=== PATIENT | female | born 1955 | race Caucasian/White ===

== ENCOUNTER 2018-11-22 05:24 | Day surgery (SDC) | payer OTHER ==
[2018-11-22] VITALS (16 sets, daily range): BP systolic 120–166; BP diastolic 55–80
[~2018-11-22] VITALS: Ht 154.9 cm; Wt 54.0 kg
[~2018-11-22 05:24] MED LIST: BIOTIN2500 MCG PO; Dexamethasone 20mg/5ml IVP ONE; SYNTHROID150 MCG ORAL; TURMERIC 450-51 EAC1 PO; VITAMIN A PO; VITAMIN B122500 MCG PO; VITAMIN E400 UNI5 PO; Vancomycin 1 GM in D5W 275 ML IVPB ONE; [UNRECOGNIZED DRUG - OTHER] PO
[2018-11-22] MEDS ORDERED: Morphine Sulfate 4mg/ml Inj (IV USE ONLY) IM PRN (05:45)
[2018-11-22] MEDS ORDERED: HYDROcodone/Acetamin 10/325 tab ORAL PRN (05:45)
[2018-11-22] MEDS ORDERED: Chloraseptic Spray 20mL Bottle ORAL PRN (05:45)
--- NOTE | 2018-11-22 06:18 | Anethesia Preoperative Eval ---
Anesthesia Pre-op PMH/ROS General Date of Evaluation: November 22, 2018 Time of Evaluation: 07:06 Anesthesiologist: Eliane ASA Score: ASA 2 Mallampati Score Class I : Soft palate, uvula, fauces, pillars visible Class II: Soft palate, uvula, fauces visible Class III: Soft palate, base of uvula visible Class IV: Only hard plate visible Mallampati Classification: Class II Surgeon: Aleksandr Diagnosis: Neck Pain Surgical Procedure: ACDF C6-7 Anesthesia History: none Family History: no anesthesia problems Allergies: Coded Allergies: PENICILLINS (Verified Allergy, Severe, 11/16/18) ANAPHYLACTIC SHOCK Medications: see eMAR Patient NPO?: Yes NPO Date: November 21, 2018 NPO Time: 2358 Past Medical History Cardiovascular: Reports: HTN Endocrine: Reports: hypothyroidism PSxH Narrative: T&A, DAVID, Cholecystectomy Anesthesia Pre-op Phys. Exam Physician Exam Last Vital Signs Date Time Temp Pulse Resp B/P (MAP) Pulse Ox O2 Delivery O2 Flow Rate FiO2 11/22/18 06:09 97.5 71 18 147/75 (99) 98 Constitutional: NAD Neurologic: CN 2-12 intact Cardiovascular: RRR Respiratory: CTA Gastrointestinal: S/NT/ND Airway Exam Mallampati Score: Class II MO: full ROM: limited Teeth: missing, intact Anesthesia Pre-op A/P Risk Assessment & Plan Assessment: ASA 2 Plan: GA, SED, GlideScope Go Status Change Before Surgery: No Pre-Antibiotics Dru Grams Ancef IV Given Within 1 Hr of Incision: Yes Time Given: 07:36 Jass Del Rio MD November 22, 2018 06:18
[2018-11-22] MEDS ORDERED: Zemuron 50mg/5ml Inj IV ONE (06:20)
[2018-11-22] MEDS ORDERED: Thrombin 5000 units TOPIC ONE (06:28)
[2018-11-22] MEDS ORDERED: Gelfoam Size TOPIC ONE (06:28)
[2018-11-22] MEDS ORDERED: Bacitracin 50000 Units Vial ONE (06:29)
[2018-11-22] MEDS ORDERED: Lidocaine 1% MPF 10mg/ml 5ml ONE (06:48)
[2018-11-22] MEDS ORDERED: Sodium Chloride 10ml vial INJ ONE (06:48)
[2018-11-22] MEDS ORDERED: Dexamethasone 4mg/ml vial ONE (06:48)
[2018-11-22] MEDS ORDERED: fentaNYL 100 mcg/2 mL IV ONE ×2 (06:49→08:25)
[2018-11-22] MEDS ORDERED: Dexamethasone 20mg/5ml IVP ONE (07:00)
[2018-11-22] MEDS ORDERED: Sterile Water Irrig 1000ml IRRIG ONE (07:00)
[2018-11-22] MEDS ORDERED: Vancomycin 1 GM in D5W 275 ML IVPB ONE (07:00)
[2018-11-22] MEDS ORDERED: LR 1000ml ONE (07:00)
[2018-11-22] MEDS ORDERED: Propofol 1,000mg/ 100ml btl IV ONE (07:00)
[2018-11-22] MEDS ORDERED: NS Irrig 1000ml ONE (07:00)
[2018-11-22] MEDS ORDERED: Labetalol 5mg/ml 20ml vial IV ONE (07:00)
--- NOTE | 2018-11-22 07:09 | Pre-Procedure Note/Attestation ---
Pre-Procedure Note/Attestation Complete Prior to Procedure Planned Procedure: not applicable Procedure Narrative: C6-C7 ACDF anterior plate Indications for Procedure Pre-Operative Diagnosis: Trauma Cervical HNP radiculopathy, neurological deficit Attestation I attest that I discussed the nature of the procedure; its benefits; risks and complications; and alternatives (and the risks and benefits of such alternatives ), prior to the procedure, with the patient (or the patient's legal employment program representative). I attest that, if there was a reasonable possibility of needing a blood transfusion, the patient (or the patient's legal employment program representative) was given the [place] [employer] standardized written summary, pursuant to the Horacio Emison Blood Safety Act ([place] Health and Safety Code # 1645, as amended). I attest that I re-evaluated the patient just prior to the surgery and that there has been no change in the patient's H&P, except as documented below: Hubert Brandon MD November 22, 2018 07:09
--- NOTE | 2018-11-22 07:11 | Immediate Post-Op Evaluation ---
Immediate Post-Op Evalulation Immediate Post-Op Evalulation Procedure: ACDF C6-7 Date of Evaluation: November 22, 2018 Time of Evaluation: 10:18 IV Fluids: 1000 LR Blood Products: 0 Estimated Blood Loss: 25 Urinary Output: 0 Blood Pressure Systolic: 159 Blood Pressure Diastolic: 76 Pulse Rate: 57 Respiratory Rate: 16 O2 Sat by Pulse Oximetry: 99 Temperature (Fahrenheit): 97.2 Pain Score (1-10): 2 Nausea: No Vomiting: No Complications 0 Patient Status: awake, reacts, patent, extubated, none Hydration Status: adequate Dru Grams Ancef IV Given Within 1 Hr of Incision: Yes Time Given: 07:36 Jass Del Rio MD November 22, 2018 07:11
[2018-11-22] MEDS ORDERED: Lidocaine 1% Plain 30 ml INJ ONE (08:51)
[2018-11-22] MEDS ORDERED: Neostigmine 1mg/ml 10ml Inj ONE (09:12)
[2018-11-22] MEDS ORDERED: Glycopyrrolate 0.2mg/ml 1ml Vial ONE (09:12)
--- NOTE | 2018-11-22 09:38 | Brief Operative Note ---
Immediate Post Operative Note Operative Note Pre-op Diagnosis: Trauma Cervical HNP radiculopathy, neurological deficit Procedure: ACDF C6-C7 Magnification SSEP Anterior Plate Post-op Diagnosis: same as pre-op Findings: consistent w/pre-op dx studies Surgeon: Aleksandr VASQUEZ Tax Lawyer: Paula FREEMAN Anesthesiologist: Eliane VASQUEZ Anesthesia: general Specimen: yes Complications: none Condition: stable Fluids: anesthesia Estimated Blood Loss: minimal Drains: none Implant(s) used?: Yes Hubert Brandon MD November 22, 2018 09:38
[2018-11-22] MEDS ORDERED: Naloxone 0.4mg/ml Inj IVP PRN (09:45)
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
[2018-11-22] MEDS ORDERED: LR 1000ml 1,000 ML IVLG SCH (10:18)
[2018-11-22] MEDS ORDERED: DiphenhydrAMINE 50mg/ml Inj IVP PRN (10:30)
[2018-11-22] MEDS ORDERED: HYDROcodone/Acetamin 5/325 tab ORAL PRN (10:30)
[2018-11-22] MEDS ORDERED: Ketorolac 30mg Inj IV PRN ×2 (10:30)
[2018-11-22] MEDS ORDERED: HYDROcodone/Acetamin 7.5/325 tab ORAL PRN (10:30)
[2018-11-22] MEDS ORDERED: Atropine Sulfate 0.4mg/ml inj IVP PRN (10:30)
[2018-11-22] MEDS ORDERED: LORazepam Inj 2mg/ml 1ml IV PRN (10:30)
[2018-11-22] MEDS ORDERED: oxyCODONE HCL/Acetaminophen 5/325mg ORAL PRN (10:30)
[2018-11-22] MEDS ORDERED: Acetaminophen (Non formulary) 100 ML IV ONE (10:30)
[2018-11-22] MEDS ORDERED: fentaNYL 100 mcg/2 mL IV PRN (10:30)
[2018-11-22] MEDS ORDERED: Midazolam 2mg/2ml Inj IVP PRN (10:30)
[2018-11-22] MEDS ORDERED: Hydromorphone 0.5mg/0.5ml inj IVP PRN (10:30)
[2018-11-22] MEDS: Meperidine 50mg/ml Inj(FOR RIGORS ONLY) IVP PRN ×2 (10:46→12:25)
--- NOTE | 2018-11-22 11:40 | NUR ---
NURSE NOTES: Received report from Melina Martin, CABLE ASSEMBLER. Patient a/o x 4. No respiratory discomfort noted. Denies any pain at this time. Anterior neck surgical site dressing is dry and intact. Ice pack was applied. Right hand IV site is intact. Bed in lowest position, call light within reach. Will continue to monitor.
[2018-11-22] MEDS ORDERED: D5 1/2NS 1,000 ML IV SCH (12:07)
--- NOTE | 2018-11-22 15:10 | Diagnostic Imaging Report ---
Indication: Intraoperative imaging Findings: 3 fluoroscopic views of the cervical spine were obtained. Intraoperative imaging showing localization followed by anterior fusion and discectomy corpectomy at C6-7. IMPRESSION: Intraoperative imaging
--- NOTE | 2018-11-22 15:40 | NUR ---
NURSE NOTES: Called Dr. Rodriguez and reconcile meds. MD ordered continue only levothyroxine. Noted and carried out.
[2018-11-22] MEDS ORDERED: ceFAZolin sod 1 GM in D5W 55 ML IV SCH (16:00)
--- NOTE | 2018-11-22 17:26 | NUR ---
P.T NOTE: P.T EVALUATION COMPLETED. EDUCATION PROVIDED TO PATIENT AND FAMILY MEMBERS RE: SPINAL/MOVEMENT PRECAUTIONS AND PROPER BODY MECHANICS THRU WRITTEN HANDOUTS, PRACTICE AND DEMONSTRATION . AUDIENCE ABLE TO VERBALIZE GOOD UNDERSTANDING . PATIENT ABLE TO RETURN GOOD DEMONSTRATION AND INCORPORATE PROPER MOBILITY TECHNIQUES WITH ABOVE FUNCTIONAL ACTIVITIES/MOBILITIES . NO FURTHER FOLLOW UP NEEDED. D/C P.T SERVICES. THANK YOU FOR THIS REFERRAL. Addendum: 11/22/18 at 1727 by GEORGE LAZCANO PT Amended: Links added.
--- NOTE | 2018-11-22 18:00 | NUR ---
NURSE NOTES: Discharge instruction was given. Arm band was given. Belongings checked with pt. Patient discharged with her in stable condition.
--- NOTE | 2018-11-22 19:15 | Operative Note - Dictated ---
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 POSTOPERATIVE DIAGNOSIS: Posttraumatic cervical herniated nucleus pulposus with radiculopathy/neurologic deficit. OPERATIVE PROCEDURE: 1. Anterior cervical diskectomy with fusion, C6-C7. 2. Anterior internal plate fixation, C6-C7. 3. High-powered microscopic dissection. 4. Intraoperative fluoroscopy interpreted by surgeon. 5. SSEP monitoring. 6. Placement of osteopromotive material. 7. Placement of titanium interbody device. SURGEON: Hubert Brandon, PhD, M.D. CREDIT REPRESENTATIVE: LYDIA Chavarria. ANESTHESIA: Dr. Eliane beard with intubation. ESTIMATED BLOOD LOSS: Less than 10 mL. COMPLICATIONS: None. POSTOPERATIVE CONDITION: Good/stable. SPECIMEN: Disc fragments to pathology. DESCRIPTION OF PROCEDURE: The patient was brought to the operating room and in the supine position, general anesthesia with intubation was induced. IV antibiotics, IV Decadron were administered 30 minutes prior to incision time. After appropriate positioning, the spinal needle was taped to the right side of the neck (inside of its sheath without penetration to the skin) and a cross-table image was obtained demonstrating the correct level for incision placement. Level was marked. Needle, sheath, tape were removed. Skin fold at the appropriate interval was marked on the left lateral aspect of the neck. Anterior cervical spine was sterilely prepped and draped free in usual sterile fashion. A transverse incision as marked was placed sharply through dermis epidermis. Electrocautery dissection was carried through the subcutaneous tissue to the level of the platysmas muscle that was identified, isolated, and transected in line with the incision. Blunt dissection was carried medial to the left sternocleidomastoid muscle and carotid sheath through the deep cervical and pretracheal fascia to the midline between the right and the left longus colli muscles. Spinal needle was bent at 90 degree angles so as to avoid penetration greater than 3 mm into the disk space was placed under direct observation into the space and a cross-table image was obtained demonstrating the correct level. Level was marked. Needle removed. Subperiosteal dissection not exceeding 3 mm mediolaterally longus colli muscles was undertaken with retractor placement. No bleeding. Anterior osteophyte was resected under high-power magnification with Midas David bur dissection. Diskectomy was performed to the posterior longitudinal ligament. Midas David bur dissection was utilized for the anterior osteophyte as noted. Posterior longitudinal ligament was resected under high-power magnification. No dural tears or leaks occurred anytime during the procedure. SSEP monitoring remained stable. A 7 mm lordotic trial demonstrating the correct positioning. A 7 mm lordotic titanium graft containing BIO-4 osteopromotive material was tamped into position with stops noted on the introducer. Cross-table imaging was obtained demonstrating posterior longitudinal ligament. It was resected under high-power magnification. No dural tears or leaks noted. SSEP monitoring stable. Appropriate sized graft was tamped into position with stops noted. Graft containing osteopromotive material. Cross-table imaging demonstrating excellent alignment. AP imaging demonstrated excellent alignment. All traction on the neck (10 pounds) was removed followed with anterior internal plate fixation in compressive fashion. Repeat AP and lateral radiographs were obtained and saved demonstrating excellent alignment, correct position/level. FloSeal was applied after exploration of a copiously irrigated incision. No obvious excoriation or laceration of vital structures. Reapproximation was undertaken with inverted Lembert sutures to the platysmas muscle. Dermis and epidermis were reapproximated with transverse surgical strips followed application with sterile bandage maintained in place with tape. The patient was awakened, extubated in the operating room, transported to postop recovery in good stable condition. Hubert Brandon M.D. DR: ANGY JOB#: [id number] CC:
--- NOTE | 2018-11-23 08:12 | 48 Hour Post Anesthesia Eval ---
Post Anesthesia Evaluation Procedure: ACDF C6-7 Date of Evaluation: November 23, 2018 Time of Evaluation: 16:07 Blood Pressure Systolic: 120 0: 56 Pulse Rate: 83 Respiratory Rate: 19 Temperature (Fahrenheit): 97.4 O2 Sat by Pulse Oximetry: 94 Airway: patent Nausea: No Vomiting: No Pain Intensity: 3 Hydration Status: adequate Cardiopulmonary Status: Stable Mental Status/LOC: patient returned to baseline Follow-up Care/Observations: 0 Post-Anesthesia Complications: 0 Follow-up care needed: ready to discharge Jass Del Rio MD November 23, 2018 08:12
[2018-11-23 08:14] VITALS: BP 120/56
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
== END 2018-11-22 18:00 | disposition home or self-care (01) ==
LOC: SUR 05:24 → 3E 12:02
DX: S13.171A Dislocation of C6/C7 cervical vertebrae, initial encounter (principal); M54.12 Radiculopathy, cervical region; E03.9 Hypothyroidism, unspecified; I10 Essential (primary) hypertension; Z98.84 Bariatric surgery status; Z88.0 Allergy status to penicillin; Z90.49 Acquired absence of other specified parts of digestive tract; Z90.89 Acquired absence of other organs; Z90.710 Acquired absence of both cervix and uterus; Z79.899 Other long term (current) drug therapy; V49.9XXA Car occupant (driver) (passenger) injured in unspecified traffic accident, initial encounter; Y92.410 Unspecified street and highway as the place of occurrence of the external cause
CPT/HCPCS: 20930; 22551; 22853; 36415; 72040; 76000; 86850; 86900; 86901; 87081; 96360; 97161; C1713; J0690; J1100; J2001; J2175; J2250; J2405; J2704; J2710; J3010; 94003; 94150